=== PATIENT | female | born 1955 | race Caucasian/White ===

== ENCOUNTER 2021-11-15 10:23 | Emergency (ER) | payer MEDICARE, SELFPAY ==
[2021-11-15 10:32] VITALS: BP 133/79; PULSE 120; RESP 16; TEMP 36.4; O2SAT 100
--- NOTE | 2021-11-15 11:00 | ED.URI ---
HPI - URI/Sore Throat General Chief Complaint: Upper Respiratory Infection Stated Complaint: Cough/Fever Time Seen by Provider: 11/15/21 11:00 Source: patient, RN notes reviewed and old records reviewed Mode of arrival: ambulatory Limitations: no limitations History of Present Illness HPI Narrative: 66-year-old female who presents to [facility] with complaints of cough which started on Tuesday with cough increasing since . Patient reports she has been taking Delsym cough syrup, using her albuterol inhaler, taking cough drops and some Tylenol. Patient does states she has had a history of bronchitis in the past for which she already had an inhaler at home which has provided her with some decrease in cough. Patient states she has noted some wheezing and has felt some short of breath with activity. She states she is also noted some chills and sweats is unsure if she has had any fevers. MD elicited complaint: cough and other (wheezing, chills and sweats) Pertinent past history: other (bronchitis) Onset (ago): day(s) (6) Consistency: progressively worsening Treatments prior to arrival: acetaminophen and other (delsym) Related Data Home Medications Medication Instructions Recorded Confirmed albuterol mcg INHALATION 11/15/21 Allergies Allergy/AdvReac Type Severity Reaction Status Date / Time No Known Allergies Allergy Verified 11/15/21 10:56 Review of Systems Review of Systems: CONSTITUTIONAL: Denies known fever, positive chills, or sweats. EYES: Denies visual changes, redness, or discharge. ENT: Denies rhinorrhea, congestion, sore throat, or otalgia. CARDIOVASCULAR: Denies chest pain, palpitations, or edema. RESPIRATORY: Positive cough some dyspnea with exertion GASTROINTESTINAL: Denies abdominal pain, nausea, vomiting, or diarrhea. GENITOURINARY: Denies dysuria or hematuria. SKIN: Denies rash or itching. MUSCULOSKELETAL: Denies back pain, joint pain, or myalgia. NEUROLOGIC: Denies headache, numbness, or weakness. PSYCHIATRIC: Denies anxiety or depression. All systems reviewed & are unremarkable except as noted in HPI and below PMFSH Past Medical History Medical History (Updated 11/15/21 @ 11:20 by Susi Wells NP) Bronchitis Surgical History Surgical History (Updated 11/15/21 @ 11:15 by Susi Wells NP) Hx of cholecystectomy S/P lumpectomy, right breast Social History Social History (Updated 11/15/21 @ 11:12 by Susi Wells NP) Smoking status: Never smoker Alcohol intake: current Alcohol use details: rare social Substance use: never Living arrangements: with family Gender identity (if verbalized by the patient): Female Comments At time of signature, agree with nursing past medical, surgical, social and family history. There is no relevant family history pertinent to the presenting complaint Exam Narrative: GENERAL:Ill-appearing, well-nourished, and in no acute distress. HEAD: Normocephalic, atraumatic. EYES: PERRLA and EOMI. ENT: Nares clear, no rhinorrhea or epistaxis. Mucous membranes moist.TM's normal with good light reflex, throat red with no lesions or exudates or any tonsil swelling. NECK: Supple. no lymphadenopathy CHEST: Faint scattered wheeze noted to auscultation. No respiratory distress.SAO2 100% on room air, cough which is non productive. HEART: Regular rate and rhythm. No murmur heard. Normal peripheral pulses. ABDOMEN: Soft, nontender, nondistended, normal active bowel sounds. EXTREMITIES: Normal range of motion. No edema. SKIN: Warm, dry, no rash. NEURO: No focal deficits. Alert and oriented x3. Course Course Level of Care: Express Care Visit Vital Signs Vital signs: Vital Signs Temperature 36.4 C L 11/15/21 10:32 Pulse Rate 120 H 11/15/21 10:32 Respiratory Rate 16 11/15/21 10:32 Blood Pressure 133/79 11/15/21 10:32 Pulse Oximetry 100 11/15/21 10:32 Temperature 36.4 C L 11/15/21 10:32 Pulse Rate 120 H 11/15/21 10:3
== END 2021-11-15 11:37 | disposition home or self-care (01) ==
PROVIDERS: Emergency Provider Registered Nurse
DX: J40 Bronchitis, not specified as acute or chronic (principal)
CPT/HCPCS: 87804; 99213; G0463